=== PATIENT | male | born 1970 | race African-American/Black ===

== ENCOUNTER → 2020-09-29 14:00 | Outpatient (BNVA) | payer OTHER, SELFPAY | PROVIDERS: PCP Internal Medicine; Visit Provider Surgery | DX: K62.5 Hemorrhage of anus and rectum (principal) | CPT/HCPCS: 99202 ==

== ENCOUNTER 2020-10-20 07:58 | Day surgery (SDC) | payer OTHER, SELFPAY ==
[2020-10-12 19:52] VITALS: BMI 19.4
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
[2020-10-20 08:11] VITALS: BP 132/84; PULSE 67; RESP 16; TEMP 37; O2SAT 98
[2020-10-20] MEDS: Lactated Ringers 1,000 ML 100 ML IVCONT (08:45)
--- NOTE | 2020-10-20 09:24 | P.OP_ITS ---
Operative Note Operative Note Date of Service: 10/20/20 Narrative: Preop diagnosis: Colon cancer screening, rectal bleeding Postop diagnosis: 1. Polyp, about 7 mm at level 15 cm 2. Bulky internal and external hemorrhoids Procedure: Colonoscopy with polypectomy using hot snare Surgeon: Heriberto Fulton MD The patient is a 49-year-old male referred to me because of periodic passage of bright blood per rectum. He had never had any colonoscopy in the past. I therefore recommended to him to undergo colonoscopy which would serve as his 1st screening colonoscopy as well. He understood the technique of the procedure as well as the risks, benefits, alternatives. He was brought to the operating room and placed in left lateral decubitus position under monitored anesthesia care. A full digital rectal exam was done. He did have bulky internal and external hemorrhoids on both the left and right side. I inserted the scope gently through the anal orifice and advanced this with insufflation all the way to the cecum. The cecum was intubatede. The ce cum was identified by visualization of the the ileocecal valve as well as the appendiceal orifice. The cecal mucosa was unremarkable. The scope was gradually withdrawn with careful examination of the entire colonic mucosa being done with scope withdrawal. The patient had good bowel prep so it was unlikely that any lesion may been missed. At level 15 cm, there was note of a polyp about 7 mm in size on a stalk. This was removed using hot snare. There was note of good hemostasis on the cauterized site. The rest of the distal rectum and anal canal was unremarkable. He did have internal and external hemorrhoids which appeared bulky on both sides. The scope was then withdrawn completely with desufflation. The patient tolerated the procedure well. There were no immediate complications. Estimated blood loss was 0. I will likely recommend another colonoscopy in the next 10 years depending on the path report.
[2020-10-20 09:27] VITALS: BP 110/68; PULSE 76; RESP 16; TEMP 36.2; O2SAT 98
--- NOTE | 2020-10-20 09:29 | PM.OP ---
Brief Operative Note Date of Service: 10/20/20 Pre-op diagnosis: Colon cancer screening, rectal bleeding Post-op diagnosis: other (Polyp at level 15 cm, internal and external hemorrhoids) Procedure: Colonoscopy with polypectomy using hot snare Surgeon: Heriberto Fulton MD Anesthesia: MAC Estimated blood loss (mL): 0 Pathology: other (Polyp) Condition: stable Disposition: PACU
--- NOTE | 2020-10-20 09:32 | MHC.SHP ---
Pre-Procedural Eval Section B Chief Complaint: Rectal Bleeding Allergies: Allergies Allergy/AdvReac Type Severity Reaction Status Date / Time No Known Allergies Allergy Verified 10/20/20 08:07 [No Known Allergies*] Plan I have reviewed the history and physical and performed a pertinent physical examination on my patient. No changes have occurred unless specified.
[2020-10-20 09:42] VITALS: BP 114/72; PULSE 62; RESP 16; O2SAT 96
[2020-10-20 09:57] VITALS: BP 132/87; PULSE 69; RESP 16; O2SAT 100
--- NOTE | 2020-10-20 10:06 | PC.NURSE ---
1005 MONITORS AND IVF DCD ASST OOB CH STEADY IV DCD DRESSED SELF AT BS CALL [facility] IN [place]
--- NOTE | 2020-10-20 16:21 | HO.POSTANES ---
Post Anesthesia Evaluation Post Anesthesia Evaluation Vital Signs: Vital Signs Temp Pulse Resp BP Pulse Ox 10/20/20 09:57 69 16 132/87 100 10/20/20 09:42 62 16 114/72 96 10/20/20 09:27 97.2 F 76 16 110/68 98 10/20/20 08:11 98.6 F 67 16 132/84 98 Anesthesia: Monitored Mental Status: Awake Pain Control: Satisfactory Nausea/Vomiting: None Hydration: Adequate Anesthesia-Related Issues: No Anes. Related Issues
== END 2020-10-20 10:31 | disposition home or self-care (01) ==
PROVIDERS: PCP Internal Medicine; Visit Provider Surgery
PROC: 0DJD8ZZ Inspection of Lower Intestinal Tract, Via Natural or Artificial Opening Endoscopic (ICD-10-PCS; CPT 45378; principal; 2020-10-20 09:00)
DX: K62.5 Hemorrhage of anus and rectum (principal); D12.7 Benign neoplasm of rectosigmoid junction; K64.8 Other hemorrhoids; K64.4 Residual hemorrhoidal skin tags; I10 Essential (primary) hypertension; E78.5 Hyperlipidemia, unspecified; I69.859 Hemiplegia and hemiparesis following other cerebrovascular disease affecting unspecified side; Z79.82 Long term (current) use of aspirin; Z79.899 Other long term (current) drug therapy; F12.90 Cannabis use, unspecified, uncomplicated
CPT/HCPCS: 45385; 88305

== ENCOUNTER → 2020-11-06 14:06 | Outpatient (BNVA) | payer OTHER, SELFPAY | PROVIDERS: PCP Internal Medicine; Visit Provider Surgery | DX: Z13.89 Encounter for screening for other disorder (principal) | CPT/HCPCS: 99212 ==

== ENCOUNTER 2021-03-16 10:30 | Outpatient (REF) | payer OTHER, SELFPAY ==
[2021-03-16 10:34] LABS: MANUAL DIFF FLAG NO
[2021-03-16 11:03] LABS: Basophils Percent Auto 0.7 % (0-2); Eosinophils Absolute Auto 0.1 X10*3/uL (0.0-0.4); Eosinophils Percent Auto 1.6 % (0-4); Hematocrit 40.7 % (42-52); Hemoglobin 13.9 g/dl (14.0-18.0); Imm Gran Abs Auto 0.01 X10*3/uL (0.00-0.03); Imm Gran Pct Auto 0.2 % (0.0-0.4); Lymphocytes Absolute Auto 1.6 X10*3/uL (1.2-4.9); Lymphocytes Percent Auto 34.4 % (20-40); Mean Corpuscular HGB Conc 34.2 g/dl (31.0-36.0); Mean Corpuscular Hemoglobin 28.8 pg (27.0-33.0); Mean Corpuscular Volume 84.3 fL (80-98); Mean Platelet Volume 10.7 fL (9.4-12.4); Monocytes Absolute Auto 0.3 X10*3/uL (0.1-1.2); Monocytes Percent Auto 7.1 % (2-11); Neutrophils Absolute Auto 2.5 X10*3/uL (2.0-8.3); Platelet Count 217 X10*3/uL (160-400); Red Blood Count 4.83 X10*6/uL (4.60-5.80); Red Cell Distribution Width 14.5 % (11.0-16.0); White Blood Count 4.5 X10*3/uL (4.8-10.8)
[2021-03-16 11:15] LABS: Alanine Aminotransferase 22 U/L (0-40); Albumin Level 4.3 g/dL (3.5-5.0); Alkaline Phosphatase 103 U/L (39-117); Anion Gap 13 (12-20); Aspartate Amino Transferase 22 U/L (5-37); Bilirubin Total 0.6 mg/dL (0.0-1.0); Blood Urea Nitrogen 9 mg/dL (9-16); Calcium 9.8 mg/dL (8.4-10.2); Carbon Dioxide 24 mmol/L (22-29); Chloride 109 mmol/L (96-108); Cholesterol 102 mg/dL; Estimated Glomerular Filt Rate > 60; Glucose Fasting 86 mg/dL (60-99); HDL Cholesterol 45 mg/dL; LDL Cholesterol Calculated 52 mg/dl; Potassium 4.3 mmol/L (3.3-5.1); Sodium 142 mmol/L (135-145); Total Protein 7.4 g/dL (6.5-8.0); Triglycerides 28 mg/dL
[2021-03-16 11:28] LABS: Reflex LDLD? No
[2021-03-16 11:31] LABS: Glucose Urine UA NEG (NEG); Leukocyte Esterase Urine NEG (NEG); Nitrite Urine NEG (NEG); Specific Gravity - Urine >= 1.030 (1.005-1.025); Urine Blood NEG (NEG); Urine Ketones NEG (NEG); Urine Protein TRACE MG/DL (NEG-TRACE)
[2021-03-16 11:42] LABS: PSA,Total (Free>4and<10) 1.57 ng/mL (0.00-4.00)
[2021-03-16 11:44] LABS: Appearance Urine CLEAR; Color Urine YELLOW
== END 2021-03-16 10:31 | disposition home or self-care (01) ==
LOC: HO.LNP 10:30
PROVIDERS: Visit Provider Internal Medicine
DX: Z00.00 Encounter for general adult medical examination without abnormal findings (principal); I63.12 Cerebral infarction due to embolism of basilar artery; Z12.5 Encounter for screening for malignant neoplasm of prostate
CPT/HCPCS: 80053; 80061; 81003; 84153; 85025

== ENCOUNTER 2021-11-15 12:45 | Outpatient (REF) | payer OTHER, SELFPAY ==
[2021-11-15 12:47] LABS: MANUAL DIFF FLAG NO
[2021-11-15 13:06] LABS: Basophils Percent Auto 0.8 % (0-2); Eosinophils Absolute Auto 0.1 X10*3/uL (0.0-0.4); Eosinophils Percent Auto 0.9 % (0-4); Hematocrit 41.8 % (42.0-52.0); Imm Gran Abs Auto 0.01 X10*3/uL (0.00-0.03); Imm Gran Pct Auto 0.2 % (0.0-0.4); Lymphocytes Absolute Auto 1.7 X10*3/uL (1.2-4.9); Lymphocytes Percent Auto 32.6 % (20-40); Mean Corpuscular HGB Conc 33.5 g/dl (31.0-36.0); Mean Corpuscular Hemoglobin 28.9 pg (27.0-33.0); Mean Corpuscular Volume 86.4 fL (80.0-98.0); Mean Platelet Volume 11.4 fL (9.4-12.4); Monocytes Absolute Auto 0.4 X10*3/uL (0.1-1.2); Monocytes Percent Auto 7.2 % (2-11); Neutrophils Absolute Auto 3.1 x10*3/uL (2.0-8.3); Neutrophils Percent Auto 58.3 % (45-73); Platelet Count 223 X10*3/uL (160-400); Red Blood Count 4.84 X10*6/uL (4.60-5.80); Red Cell Distribution Width 14.3 % (11.0-16.0); White Blood Count 5.3 X10*3/uL (4.8-10.8)
== END 2021-11-15 12:46 | disposition home or self-care (01) ==
LOC: HO.LNP 12:45
PROVIDERS: PCP Internal Medicine; Visit Provider Internal Medicine
DX: K62.5 Hemorrhage of anus and rectum (principal)
CPT/HCPCS: 85025

== ENCOUNTER 2022-03-28 14:21 | Outpatient (REF) | payer OTHER, SELFPAY ==
[2022-03-28 15:08] LABS: MANUAL DIFF FLAG NO
[2022-03-28 15:52] LABS: Basophils Absolute Auto 0.1 X10*3/uL (0.0-0.2); Basophils Percent Auto 0.9 % (0-2); Eosinophils Absolute Auto 0.1 X10*3/uL (0.0-0.4); Eosinophils Percent Auto 0.9 % (0-4); Hemoglobin 13.9 g/dl (14.0-18.0); Imm Gran Abs Auto 0.02 X10*3/uL (0.00-0.03); Imm Gran Pct Auto 0.4 % (0.0-0.4); Lymphocytes Absolute Auto 1.4 X10*3/uL (1.2-4.9); Lymphocytes Percent Auto 25.6 % (20-40); Mean Corpuscular HGB Conc 33.9 g/dl (31.0-36.0); Mean Corpuscular Hemoglobin 28.6 pg (27.0-33.0); Mean Corpuscular Volume 84.4 fL (80.0-98.0); Mean Platelet Volume 10.8 fL (9.4-12.4); Monocytes Absolute Auto 0.3 X10*3/uL (0.1-1.2); Monocytes Percent Auto 5.3 % (2-11); Neutrophils Absolute Auto 3.7 x10*3/uL (2.0-8.3); Neutrophils Percent Auto 66.9 % (45-73); Platelet Count 194 X10*3/uL (160-400); Red Blood Count 4.86 X10*6/uL (4.60-5.80); Red Cell Distribution Width 14.1 % (11.0-16.0); White Blood Count 5.5 X10*3/uL (4.8-10.8)
[2022-03-28 16:16] LABS: Cholesterol 87 mg/dL; HDL Cholesterol 46 mg/dL; LDL Cholesterol Calculated 35 mg/dl; Triglycerides 32 mg/dL
[2022-03-28 16:23] LABS: Erythrocyte Sedimentation Rate 7 MM/HR (0-15)
[2022-03-28 16:35] LABS: PSA,Total (Free>4and<10) 1.78 ng/mL (0.00-4.00); TSH reflex Free T4 0.24 uIU/mL (0.32-4.0)
[2022-03-28 17:30] LABS: Free T4 (Free Thyroxine) 1.04 ng/dL (0.71-1.85)
[2022-03-29 02:34] LABS: CT PCR NOT DETECTED (Not Detect.); NG PCR NOT DETECTED (Not Detect.)
[2022-03-29 05:21] LABS: HIV AB/AG Nonreactive (Nonreactive); HIV Num 1 0.11 S/CO (0.00-0.99)
== END 2022-03-28 14:22 | disposition home or self-care (01) ==
LOC: HO.LAB 14:21
PROVIDERS: Visit Provider Internal Medicine
DX: Z11.3 Encounter for screening for infections with a predominantly sexual mode of transmission (principal); Z12.5 Encounter for screening for malignant neoplasm of prostate; Z11.4 Encounter for screening for human immunodeficiency virus [HIV]; R63.4 Abnormal weight loss; Z20.2 Contact with and (suspected) exposure to infections with a predominantly sexual mode of transmission
CPT/HCPCS: 80061; 84153; 84439; 84443; 85025; 85652; 87389; 87491; 87591